=== PATIENT | male | born 1950 | race Caucasian/White ===

== ENCOUNTER → 2021-06-27 | Outpatient (CLI) | payer OTHER ==
[~2021-06-27] VITALS: Ht 185.4 cm; Wt 106.6 kg
== END ==
LOC: EROP 12:03
DX: U07.1 COVID-19 (principal); Z23 Encounter for immunization; M79.7 Fibromyalgia; Z88.1 Allergy status to other antibiotic agents; Z88.8 Allergy status to other drugs, medicaments and biological substances; Z95.0 Presence of cardiac pacemaker
CPT/HCPCS: M0247; Q0247